=== PATIENT | female | born 1995 | race Caucasian/White ===

== ENCOUNTER 2022-09-19 14:15 | Emergency (ER) | payer BC, SELFPAY ==
[2022-09-19] VITALS (9 sets, daily range): BP systolic 111–141; BP diastolic 64–79; PULSE 70–86; RESP 16; TEMP 36.3–36.8; O2SAT 99–100
--- NOTE | ~2022-09-19 | CT_ITS ---
EXAMINATION: CTA chest PE abdomen pel DATE: 09/19/2022 20:33 INDICATION: cp, sob, epigastric pain, elevated dimer TECHNIQUE: Computed tomography angiography (CTA) of the chest was performed with 100 mL Omnipaque-350 intravenous contrast timed to evaluate the pulmonary arteries, followed by portal venous phase imagi ng of the abdomen and pelvis. Coronal maximum intensity projection 3D-reconstructions were created by the technologist. The dose-length product (DLP) was 777.77 mGy-cm. Automated exposure control and it erative reconstruction technique were employed. COMPARISON: None. FINDINGS: CHEST: Lung parenchyma and airways: Clear. Pleura: Unremarkable. Thoracic inlet, axillae and chest wall: Unremarkable. Thoracic aorta: Normal. Mediastinum: Normal. Heart and pericardium: Normal. Coronary artery calcifications: Absent. Thoracic bones: No acute osseous finding. Thoracic scoliosis. Pulmonary arteries: Study quality: Adequate. No pulmonary emboli detected. ABDOMEN/PELVIS: Liver: Normal. Biliary/Gallbladder: Gallbladder is normal. No bile duct dilation. Pancreas: No mass or duct dilation. Spleen: Normal. Adrenals:No mass. Kidneys: No mass, stone, or hydronephrosis. GI tract: No small or large bowel dilation. Normal appendix. Mesentery/Peritoneum: No ascites, mass, or free air. Retroperitoneum: No mass. Pelvis: Pelvic organs are within normal limits. Soft Tissues: Soft tissues and body wall unremarkable. Abdominopelvic bones: No acute osseous finding. IMPRESSION: No CT evidence of acute pulmonary embolus. No acute process detected in the chest, abdomen, or pelvis . Reviewed, dictated and finalized at location K. K SETTER IMPRESSION: No CT evidence of acute pulmonary embolus. No acute process detected in the [address], abdomen, or pelvis.
[2022-09-19 14:51] LABS: Basophils Absolute Auto 0.1 K/mm3 (0.0-0.1); Basophils Percent Auto 0.6 % (0.2-1.2); Eosinophils Absolute Auto 0.1 K/mm3 (0-0.3); Eosinophils Percent Auto 0.6 % (0-4.4); Hematocrit 44.5 % (37.0-47.0); Hemoglobin 14.7 g/dL (12.0-15.0); Immature Granulocyte Absolute 0.03 K/mm3 (0.00-0.031); Immature Granulocyte Percent A 0.4 % (0-0.5); Lymphocytes Absolute Auto 2.25 K/mm3 (0.9-3.2); Lymphocytes Percent Auto 28.6 % (18.3-44.2); Mean Corpuscular Hemoglobin 30.9 pg (26-34); Mean Corpuscular Volume 93.5 fl (80-100); Mean Platelet Volume 10.5 fl (7.4-10.4); Monocytes Absolute Auto 0.5 K/mm3 (0.1-0.6); Monocytes Percent Auto 5.7 % (2.6-8.5); Neutrophils Absolute Auto 5.1 K/mm3 (1.3-6.7); Neutrophils Percent Auto 64.1 % (45.5-73.1); Platelet Count Result 219 k/mm3 (150-375); Red Blood Count 4.76 M/mm3 (4.2-5.4); Red Cell Distribution Width 12.2 % (11.5-14.5); White Blood Count 7.9 K/mm3 (4.5-10.0)
[2022-09-19 15:00] LABS: Appearance Urine Clear (Clear); Bilirubin Urine 1+ (Negative); Blood Urine 1+ (Negative); Color Urine Yellow (Yellow); Glucose Urine UA Negative (Negative); Ketones Urine Trace mg/dL (Negative); Leukocyte Esterase Ur Negative LEU/UL (Negative); Nitrate Urine Negative (Negative); Protein Urine 1+ mg/dL (Negative); Specific Grav Ur 1.025 (1.001-1.035); Urobilinogen Urine 0.2 mg/dL (<2.0); pH Urine 6.5 (5.0-9.0)
[2022-09-19 15:01] LABS: Alanine Aminotransferase 18 U/L (6-35); Albumin Level 4.6 g/dL (3.5-5.1); Alkaline Phosphatase 59 U/L (38-126); Anion Gap 13 mmol/L (8-16); Aspartate Amino Transferase 24 U/L (14-36); Bilirubin,Total 0.5 mg/dL (0.2-1.3); Blood Urea Nitrogen 13 mg/dL (7-17); Calcium 9.2 mg/dL (8.4-10.2); Carbon Dioxide 25 mmol/L (22-30); Chloride 103 mmol/L (98-107); Estimated CRCL calculation 82 ml/min; Estimated Glomerular Filt Rate > 60; Glucose 104 mg/dL (65-110); Lipase 43 U/L (23-300); Potassium 3.7 mmol/L (3.4-5.0); Sodium 141 mmol/L (137-145)
[2022-09-19 15:03] LABS: Bacteria Urine Trace /hpf; Mucus Urine Few /lpf; Squamous Epithelial Cell Urine Few /hpf (Few); WBC Urine 0-3 /hpf
[2022-09-19 15:10] LABS: Add Urine Microscopic? YES
[2022-09-19] MEDS: FAMOTIDINE 20 MG/2 ML VIAL IV PUSH (18:32)
[2022-09-19] MEDS: SODIUM CHLORIDE 0.9% IV 1,000 ML 999 ML IV CONT (18:32)
--- NOTE | 2022-09-19 18:37 | ECG_ITS ---
Measurements Intervals [place] Rate: 81 P: 25 [place]: 149 QRS: 65 QRSD: 94 T: 42 QT: 386 QTc: 450 Interpretive Statements SINUS RHYTHM BORDERLINE T WAVE ABNORMALITY- ANTERIOR LEADS BASELINE WANDER- II, III, AVF BORDERLINE ECG NO PREVIOUS ECG AVAILABLE FOR COMPARISON Electronically Signed On 09-20-2022 6:37:06 [employer] by Mor Álvarez D.O.
--- NOTE | 2022-09-19 18:38 | ED.ABDPAIN ---
HPI - Abdominal Pain General Chief Complaint: Abdominal Pain <DONELL Modi Last Filed: 09/19/22 21:16> Stated Complaint: epigastric pain <DONELL Modi Last Filed: 09/19/22 21:16> Time Seen by Provider: 09/19/22 18:09 <DONELL Modi Last Filed: 09/19/22 21:16> Source: patient <DONELL Modi Last Filed: 09/19/22 21:16> Mode of arrival: ambulatory <DONELL Modi Last Filed: 09/19/22 21:16> Limitations: no limitations <DONELL Modi Last Filed: 09/19/22 21:16> History of Present Illness HPI narrative: This is a 27-year-old female that presents to the emergency department for epigastric pain ongoing over the last 3 days. Reports the pain is a pressure. It is constant and worse with eating. Associated with nausea, diarrhea, and shortness of breath. She has been taking her omeprazole with little relief. Denies fever, cough, vomiting, or dysuria. <DONELL Modi Last Filed: 09/19/22 21:16> Related Data Home Medications: Home Medications Medication Instructions Recorded Confirmed omeprazole 40 mg capsule,delayed 40 mg PO BID 09/25/22 09/25/22 release <DONELL Modi Last Filed: 09/19/22 21:16> Allergies/Adverse Reactions: Allergies Allergy/AdvReac Type Severity Reaction Status Date / Time No Known Allergies Allergy Verified 09/25/22 13:01 <DONELL Modi Last Filed: 09/19/22 21:16> Review of Systems Review of Systems: CONSTITUTIONAL: Denies fever CARDIOVASCULAR: Reports chest pain. Denies edema. RESPIRATORY: Reports dyspnea. Denies cough GASTROINTESTINAL: Reports abdominal pain, nausea, and diarrhea. GENITOURINARY: Denies dysuria PSYCHIATRIC: Reports anxiety and depression. <DONELL Modi Last Filed: 09/19/22 21:16> All systems reviewed & are unremarkable except as noted in HPI and below <Summer Bush PA-C - Last Filed: 09/19/22 21:16> [facility] Past Medical History Medical History: Medical History (Updated 09/25/22 @ 13:41 by Chelle Brady APRN) Atypical chest pain Globus sensation History of anxiety History of depression History of gastroesophageal reflux (GERD) Nausea Overweight (BMI 25.0-29.9) Upper abdominal pain <Summer Bush PA-C - Last Filed: 09/19/22 21:16> Social History Social History: Social History Smoking status: Former smoker Alcohol intake: current Substance use: current Substance use type: marijuana <Summer Bush PA-C - Last Filed: 09/19/22 21:16> Exam Narrative: GENERAL: Well-appearing, well-nourished, and in no acute distress. HEAD: Normocephalic, atraumatic. EYES: EOMI. CHEST: Clear to auscultation. No respiratory distress. No wheezes rales or rhonchi HEART: Regular rate and rhythm. No murmur heard. Normal peripheral pulses. ABDOMEN: Soft, nondistended, normal active bowel sounds. Tender to palpation in the epigastrium, without guarding EXTREMITIES: Normal range of motion. No edema. SKIN: Warm, dry, no rash. NEURO: No focal deficits. Alert and oriented x3. PSYCH: Normal mood and affect <Summer Bush PA-C - Last Filed: 09/19/22 21:16> Course VIDEO CLERK/PA Physician Supervision For this patient encounter, I reviewed the VIDEO CLERK or PA documentation, treatment plan, and medical decision making. I was available for consultation as needed. <Blaire Quarles MD - Last Filed: 10/04/22 12:59> Vital Signs Vital signs: Vital Signs Temperature 97.3 F L 09/19/22 14:36 Pulse Rate 85 09/19/22 14:36 Respiratory Rate 16 09/19/22 14:36 Blood Pressure 141/79 H 09/19/22 14:36 Pulse Oximetry 100 09/19/22 14:36 Temperature 98.3 F 09/19/22 21:00 Pulse Rate 72 09/19/22 21:00 Respiratory Rate 16 09/19/22 21:00 Blood Pressure 116/74 09/19/22 21:00 Pulse Oximetry 100 09/19/22 21:00 <Summer Bush,
[2022-09-19 19:47] LABS: Troponin I < 0.012 ng/mL (0.000-0.034)
[2022-09-19 19:54] LABS: D Dimer 0.53 ug/mL (<0.48)
== END 2022-09-19 21:29 | disposition home or self-care (01) ==
PROVIDERS: Emergency Medicine; Physician Assistant; Emergency Provider Emergency Medicine; PCP Physician Assistant
DX: R10.13 Epigastric pain (principal); K21.9 Gastro-esophageal reflux disease without esophagitis; Z87.891 Personal history of nicotine dependence; R94.31 Abnormal electrocardiogram [ECG] [EKG]
CPT/HCPCS: 36415; 71275; 74177; 80053; 81001; 81025; 83690; 84484; 85025; 85380; 93005; 96361; 96374; 96375; 99284; J0131; J7030; Q9967

== ENCOUNTER 2022-10-17 07:54 | Outpatient (CLI) | payer BC, SELFPAY ==
--- NOTE | ~2022-10-17 | NM_ITS ---
EXAMINATION: NM hepatobiliary wo pharm DATE: 10/17/2022 10:27 INDICATION: Atypical chest pain and upper abdominal pain. COMPARISON: None. TECHNIQUE: 20.8 mCi Tc-99m mebrofenin (Choletec) was administered intravenously. Scintigraphic image s of the abdomen were obtained for one hour. At the 1 hour time point, the patient drank 8 oz Ensure, and imaging was continued for 60 minutes. Gallbladder ejection fraction was calculated by the techno logist. FINDINGS: There is normal clearance of radiotracer from the blood pool. There is homogeneous tracer u ptake by the liver. Activity progresses to the bowel and gallbladder. The gallbladder ejection fract ion (GBEF) is 48%. Note that with this technique, normal GBEF >= 33%. IMPRESSION: 1. Normal hepatobiliary scan. Reviewed, dictated and finalized at location A. SURVEYOR
== END 2022-10-17 07:55 | disposition home or self-care (01) ==
LOC: ANHIMG 07:56
PROVIDERS: PCP Physician Assistant; Visit Provider Nurse Practitioner
DX: R07.89 Other chest pain (principal); R10.10 Upper abdominal pain, unspecified; R11.0 Nausea
CPT/HCPCS: 78226; A9537

== ENCOUNTER 2022-10-25 09:11 | Outpatient (CLI) | payer BC, SELFPAY ==
[2022-11-23 13:01] LABS: Gliadin AB, IgG <1.0 U/mL (<15.0); TTG IGA AB <1.0 U/mL (<15.0)
== END 2022-10-25 09:12 | disposition home or self-care (01) ==
LOC: ANHLAB 09:13
PROVIDERS: PCP Physician Assistant; Visit Provider Nurse Practitioner
DX: R07.89 Other chest pain (principal); R10.10 Upper abdominal pain, unspecified; R11.0 Nausea
CPT/HCPCS: 36415; 83516; 84443; 86255

== ENCOUNTER 2022-11-08 09:05 | Outpatient (CLI) | payer BC, SELFPAY ==
--- NOTE | ~2022-11-08 | NM_ITS ---
EXAM: NM gastric emptying study DATE: 11/08/2022 14:11 INDICATION: GERD. Upper abdominal pain and nausea TECHNIQUE: A gastric emptying study was performed using the methodology of Barney TORIBIO, et al. J Nucl Med 2007; 48:568-572. The patient was given a meal consisting of 2 scrambled eggs labeled with 0.981 mCi Tc-99m sulfur colloid, 2 slices of toast, two packages of jam, and approximately 120 mL of water . Simultaneous anterior and posterior 1-min images of the abdomen were obtained with the patient supi ne at multiple time points over a total period of 4 hours. The geometric mean of anterior and posteri or views was determined, and the percentage retention was calculated for each time point. COMPARISON: None. FINDINGS: Gastric retention of the radiotracer-labeled meal was 54%, 35%, and 7% at the 1-hour, 2-hour, and 4-h our time points, respectively. With this technique, apparent rapid gastric emptying is suggested by < 30% gastric retention at 1 hour. Delayed gastric emptying is defined by gastric retention of >90% at 1 hour, >60% retention at 2 hours, or >10% retention at 4 hours. IMPRESSION: 1. Normal gastric emptying. Reviewed, dictated and finalized at location A. GER UTILIZATION REVIEW IMPRESSION: 1. Normal gastric emptying.
== END 2022-11-08 09:06 | disposition home or self-care (01) ==
PROVIDERS: PCP Physician Assistant; Visit Provider Nurse Practitioner
DX: R10.10 Upper abdominal pain, unspecified (principal); R07.89 Other chest pain; K21.00 Gastro-esophageal reflux disease with esophagitis, without bleeding; R11.0 Nausea
CPT/HCPCS: 78264; A9541

== ENCOUNTER 2024-04-10 16:09 | Outpatient (CLI) | payer BC, SELFPAY ==
--- NOTE | ~2024-04-10 | XR_ITS ---
EXAM: XR thoracic spine 2V DATE: 04/10/2024 16:29 HISTORY: LOW BACK AND MID BACK PAIN . COMPARISON: None available. FINDINGS: Moderate scoliosis. Decreased bone mineral density. Vertebral body alignment intact. Verteb ral body heights preserved. No disc space narrowing. No traumatic malalignment or fracture. Visualize d lung parenchyma is clear. IMPRESSION: Moderate thoracic scoliosis. Osteopenia to a degree greater than expected for age, consid er bone density scanning for further evaluation. Reviewed, dictated and finalized at location K. IMPRESSION: Moderate thoracic scoliosis. Osteopenia to a degree greater than ex pected for age, consider bone density scanning for further evaluation.
--- NOTE | ~2024-04-10 | XR_ITS ---
EXAM: XR lumbar spine min 4V DATE: 04/10/2024 16:29 HISTORY: LOW BACK AND MID BACK PAIN . COMPARISON: CT abdomen pelvis 09/19/2022. FINDINGS: Mild scoliosis. Diffusely decreased bone mineral density. 5 nonrib-bearing lumbar-type vert ebral bodies. No pars defect. Normal vertebral body alignment. Exaggerated lordosis. Vertebral body h eights preserved. Moderate disc space narrowing at L5-S1. Mild facet narrowing and sclerosis at L5-S1 . Unfused posterior arch at S1. No fracture or dislocation. IMPRESSION: Mild scoliosis. Multilevel degenerative disc disease, mild at L4-5 and moderate at L5-S1. Mild facet arthropathy at L5-S1. Osteopenia to a degree greater than expected for age. Consider bone density evaluation. Reviewed, dictated and finalized at location K. IMPRESSION: Mild scoliosis. Multilevel degenerative disc disease, mild at L4-5 and moderate at L5-S1. Mild facet arthropathy at L5-S1. Osteopenia to a degree greater than expected for age. Consider bone density janette luation.
== END 2024-04-10 16:10 ==
PROVIDERS: PCP Chiropractor; Visit Provider Chiropractor
DX: M41.84 Other forms of scoliosis, thoracic region (principal); M41.86 Other forms of scoliosis, lumbar region; M51.36 Other intervertebral disc degeneration, lumbar region; M51.37 Other intervertebral disc degeneration, lumbosacral region; M47.897 Other spondylosis, lumbosacral region; M81.0 Age-related osteoporosis without current pathological fracture
CPT/HCPCS: 72070; 72110

== ENCOUNTER 2024-10-16 14:04 | Emergency (ER) | payer BC, SELFPAY ==
--- NOTE | ~2024-10-16 | CT_ITS ---
CT abdomen pelvis w con Ordering provider: Florin Shaw MD History: 29 years Female with . RLQ abdominal pain . Comparison: None. Technique: CT abdomen and pelvis with IV and without oral contrast. Automated exposure control and it erative reconstruction technique were employed. The dose-length product was 414.11 mGy-cm. 100 mL Omnipaque 350 was given IV. Findings: VISUALIZED LOWER CHEST: Normal. UPPER ABDOMINAL ORGANS: Liver: Normal. Gallbladder: Normal. Spleen: Normal. Stomach/duodenum: Normal. Pancreas: Normal. Adrenals: Normal. Kidneys: Normal. PELVIC ORGANS: The bladder is normal. . Uterus: Normal. BOWEL AND MESENTERY: Colon: No evidence of diverticulitis.. Normal appendix. Small Bowel: Normal. No obstruction. Peritoneum/mesentery: No free air or free fluid. No mesenteric lymphadenopathy. RETROPERITONEUM: Normal aorta. No retroperitoneal lymphadenopathy. MUSCULOSKELETAL: Superficial soft tissues: The superficial soft tissues are normal. Bones: Normal spine. IMPRESSION: 1. No evidence of appendicitis, diverticulitis or intestinal obstruction. Reviewed, dictated and finalized at location A. [facility]
--- NOTE | ~2024-10-16 | US_ITS ---
EXAMINATION: US pelvic complete w TV DATE: 10/16/2024 16:08 INDICATION: Low back pain. Low abdominal pain. TECHNIQUE: Multiple transabdominal and transvaginal sonographic images of the pelvis were obtained. COMPARISON: CT abdomen and pelvis 09/19/2022 FINDINGS: TRANSABDOMINAL ULTRASOUND: The uterus measures 6.4 x 2.9 x 4.3 cm. There is no free fluid in the pelvis. TRANSVAGINAL ULTRASOUND: The endometrial complex measures 5 mm in thickness. The right ovary measures 2.4 x 1.2 x 1.3 cm. The left ovary measures 2.3 x 1.2 x 1.0 cm. There is normal vascular flow in the ovaries. IMPRESSION: 1. Normal pelvis. Reviewed, dictated and finalized at location A. E CALLS NURSE IMPRESSION: 1. Normal pelvis.
[2024-10-16 14:20] VITALS: BP 124/75; PULSE 82; RESP 18; TEMP 36.6; O2SAT 100
--- NOTE | 2024-10-16 15:05 | ED.ABDPAIN ---
HPI - Abdominal Pain General Chief Complaint: Abdominal Pain <DONELL Thao Last Filed: 10/16/24 15:19> Stated Complaint: 5-6wks post has back pain and cramping <DONELL Thao Last Filed: 10/16/24 15:19> Time Seen by Provider: 10/16/24 15:05 <DONELL Thao Last Filed: 10/16/24 15:19> Focused HPI: Patient is a 29 y/o female who presents to the ED with c/o lower abd/back cramping. Patient reports she is 5-6 weeks post surgical . She was 17 weeks gestation at that time and underwent surgical portion through [facility]. . Patient reports over the last few days, she has been having pain and cramping in her lower back. She has also been having some cramping in her lower abdomen, as well as a warming clammy sensation. Denies known fevers. Has been taking ibuprofen/tylenol for pain. She currently is using NuvaRing for control in states she is due to take this out to have a cycle. She has otherwise not had a normal cycle since the . Sees Dr. Chapa and was referred here for further evaluation. GENERAL: Well-appearing, well-nourished, and in no acute distress. HEAD: Normocephalic, atraumatic. CHEST: Clear to auscultation. ?No respiratory distress. HEART: Regular rate and rhythm.? ABD: Mild TTP in lower back. Normoactive BS NEURO: ?Alert and oriented x3. Patient screened in triage and initial orders placed.? ?Additional care and disposition to be based upon?diagnostic testing and treatment. <DONELL Thao Last Filed: 10/16/24 15:19> Source: patient <DONELL Thao Filed: 10/16/24 15:19> Mode of arrival: ambulatory <DONELL Thao Last Filed: 10/16/24 15:19> Limitations: no limitations <DONELL Thao Last Filed: 10/16/24 15:19> History of Present Illness HPI narrative: I agree with the HPI as documented in the medical screening exam <Florin Shaw MD - Last Filed: 10/17/24 00:51> Related Data Home Medications: Home Medications Medication Instructions Recorded Confirmed omeprazole 40 mg capsule,delayed 40 mg PO BID 09/25/22 03/15/23 release <Kendal Duenas PA-C - Last Filed: 10/16/24 15:19> Allergies/Adverse Reactions: Allergies Allergy/AdvReac Type Severity Reaction Status Date / Time No Known Allergies Allergy Verified 10/16/24 14:23 <Kendal Duenas PA-C - Last Filed: 10/16/24 15:19> Review of Systems Review of Systems: All systems reviewed & are unremarkable except as noted in HPI and below <Florin Shaw MD - Last Filed: 10/17/24 00:51> PMFSH Past Medical History Medical History: Medical History Atypical chest pain GERD with esophagitis Globus sensation Hiatal hernia History of anxiety History of depression History of gastroesophageal reflux (GERD) Nausea Overweight (BMI 25.0-29.9) Upper abdominal pain <Kendal Duenas PA-C - Last Filed: 10/16/24 15:19> Surgical History Surgical History: Surgical History H/O wisdom tooth extraction <Kendal Duenas PA-C - Last Filed: 10/16/24 15:19> Family History Family History: Family History Father Hypertension <Kendal Duenas PA-C - Last Filed: 10/16/24 15:19> Social History Social History: Social History Smoking status: Former smoker Tobacco type: cigarettes Alcohol intake: current Substance use: current Substance use type: marijuana Living arrangements: alone Occupation/Education: occupation Additional occupation/education comments: Insurance Auditor <Kendal Duenas PA-C - Last Filed: 10/16/24 15:19> Exam Narrative: GENERAL: Well-developed, well-nourished, and in no acute distress. HEAD: Normocephalic, atraumatic. EYES: PERRLA and EOMI. CHEST: Clear to auscultation. No respiratory distress. No wheezes rales or rhonchi HEART: Regular rate and rhythm. No murmur heard. Normal peripheral pulses. ABDOMEN: Soft, right lower quadrant tenderness to palpation without rebound or guarding, Rovsing sign positive, nondistended, normal active bowel sounds. mild right CVA tenderness to palpation, no left CVA tenderness EXTREMITIES: Normal range of motion. No edema. SKIN: Warm, dry, no rash. NEURO: Alert and oriented x3. No focal deficit. Moving all 4 limbs spontaneously PSYCH: Normal mood and affect. <Florin Shaw MD - Last Filed: 10/17/24 00:51> Course Course Emergency Course: 22:40 - CBC unremarkable. Chemistries within normal limits. test negative. pelvic ultrasound demonstrates a normal endometrial stripe with normal ovaries bilaterally. Urinalysis demonstrates microscopic hematuria with RBCs of 3-5. CT abdomen pelvis negative for acute intra-abdominal process. It is possible the patient may have passed a stone. Will discharge with NSAIDs and recommendation for primary care follow-up. I discussed the findings and recommendations with The patient. Discussed return and emergency precautions including signs/symptoms of acute abdomen and intractable vomiting. The patient voiced understanding and agreement with the plan. All questions answered to her satisfaction. <Florin Shaw MD - Last Filed: 10/17/24 00:51> Vital Signs Vital signs: Vital Signs Temperature 97.9 F 10/16/24 14:20 Pulse Rate 82 10/16/24 14:20 Respiratory Rate 18 10/16/24 14:20 Blood Pressure 124/75 10/16/24 14:20 Pulse Oximetry 100 10/16/24 14:20 Oxygen Delivery Room Air 10/16/24 14:20 Temperature 97.6 F 10/16/24 20:12 Pulse Rate 78 10/16/24 23:30 Respiratory Rate 16 10/16/24 23:30 Blood Pressure 128/80 10/16/24 23:30 Pulse Oximetry 100 10/16/24 23:30 Oxygen Delivery Room Air 10/16/24 14:20 <Kendal Duenas PA-C - Last Filed: 10/16/24 15:19> Vital Signs Temperature 97.9 F 10/16/24 14:20 Pulse Rate 82 10/16/24 14:20 Respiratory Rate 18 10/16/24 14:20 Blood Pressure 124/75 10/16/24 14:20 Pulse Oximetry 100 10/16/24 14:20 Oxygen Delivery Room Air 10/16/24 14:20 Temperature 97.6 F 10/16/24 20:12 Pulse Rate 78 10/16/24 23:30 Respiratory Rate 16 10/16/24 23:30 Blood Pressure 128/80 10/16/24 23:30 Pulse Oximetry 100 10/16/24 23:30 Oxygen Delivery Room Air 10/16/24 14:20 <Florin Shaw MD - Last Filed: 10/17/24 00:51> MDM - Abdominal Pain MDM Narrative Medical decision making narrative: MSE by LATOYA in triage. <Kendal Duenas PA-C - Last Filed: 10/16/24 15:19> MSE by LATOYA in triage. plan: Labs, imaging, test, ultrasound, pain control, reassess <Florin Shaw MD - Last Filed: 10/17/24 00:51> Differential Diagnosis Differential diagnosis: Likely acute appendicitis, calculus of kidney, diverticulitis, gastroenteritis, pancreatitis, small bowel obstruction and other ( ovarian torsion, , ectopic , UTI, pyelonephritis, other) <Florin Shaw MD - Last Filed: 10/17/24 00:51> Lab Data Result diagrams: 10/16/24 16:09 10/16/24 16:09 <Kendal Duenas PA-C - Last Filed: 10/16/24 15:19> Labs: Lab Results 10/16/24 10/16/24 10/16/24 Range/Units 16:09 16:14 16:21 WBC 5.2 (4.5-10.0) K/mm3 RBC 4.54 (4.2-5.4) M/mm3 Hgb 14.3 (12.0-15.0) g/dL Hct 43.3 (37.0-47.0) % MCV 95.4 (80-100) fl MCH 31.5 (26-34) pg MCHC 33.0 (32-36) g/dl RDW 12.2 (11.5-14.5) % Plt Count 199 (150-375) k/mm3 MPV 11.0 H (7.4-10.4) fl Immature Gran % (Auto) 0.2 (0-0.5) % Neut % (Auto) 40.7 L (45.5-73.1) % Lymph % (Auto) 49.3 H (18.3-44.2) % Boyle % (Auto) 8.4 (2.6-8.5) % Eos % (Auto) 0.8 (0-4.4) % Baso % (Auto) 0.6 (0.2-1.2) % Lymph # (Auto) 2.57 (0.9-3.2) K/mm3 Boyle # (Auto) 0.4 (0.1-0.6) K/mm3 Eos # (Auto) 0.0 (0-0.3) K/mm3 Baso # (Auto) 0.0 (0.0-0.1) K/mm3 Abs Immat Gran (auto) 0.01 (0.00-0.031) K/mm3 Absolute Neuts (auto) 2.1 (1.3-6.7) K/mm3 Absolute Nucleated RBC 0.000 (0.0-0.012) K/mm3 Nucleated RBC % 0.0 (0.0-0.2) % Sodium 140 (137-145) mmol/L Potassium 4.0 (3.4-5.0) mmol/L Chloride 110 H (98-107) mmol/L Carbon Dioxide 25 (22-30) mmol/L Anion Gap 5 (4-12) mmol/L BUN 15 (7-17) mg/dL Creatinine 0.80 (0.7-1.0) mg/dL Estim Creat Clear Calc 89 ml/min Estimated GFR > 60 (59 - ) Glucose 83 (65-110) mg/dL Calcium 9.1 (8.4-10.2) mg/dL Total Bilirubin 0.4 (0.2-1.3) mg/dL AST 21 (14-36) U/L ALT 14 (6-35) U/L Alkaline Phosphatase 46 (38-126) U/L Total Protein 7.0 (6.3-8.2) g/dL Albumin 4.4 (3.5-5.1) g/dL Beta HCG, Quant < 2.39 mIU/ML Urine Color Yellow (Yellow) Urine Appearance Clear (Clear) Urine pH 6.0 (5.0-9.0) Ur Specific [place] 1.034 (1.001-1.035) Urine Protein Trace (Negative) mg/dL Urine Glucose (UA) Negative (Negative) mg/dL Urine Ketones Trace H (Negative) mg/dL Ur Blood (Man) Non-hemolyzed trace H (Negative) Urine Nitrate Negative (Negative) Urine Bilirubin Negative (Negative) Urine Urobilinogen 1.0 (<2.0) mg/dL Leukocyte Esterase Rfl Negative (Negative) [place]/UL Urine RBC 3-5 H (0-2) /hpf Urine WBC 0-5 (0-3) /hpf Ur Squamous Epith Cells Occasional (Few) /hpf Urine Bacteria None seen /hpf Urine Casts 0-2 <Kendal Duenas PA-C - Last Filed: 10/16/24 15:19> Lab Results 10/16/24 10/16/24 10/16/24 Range/Units 16:09 16:14 16:21 WBC 5.2 (4.5-10.0) K/mm3 RBC 4.54 (4.2-5.4) M/mm3 Hgb 14.3 (12.0-15.0) g/dL Hct 43.3 (37.0-47.0) % MCV 95.4 (80-100) fl MCH 31.5 (26-34) pg MCHC 33.0 (32-36) g/dl RDW 12.2 (11.5-14.5) % Plt Count 199 (150-375) k/mm3 MPV 11.0 H (7.4-10.4) fl Immature Gran % (Auto) 0.2 (0-0.5) % Neut % (Auto) 40.7 L (45.5-73.1) % Lymph % (Auto) 49.3 H (18.3-44.2) % Boyle % (Auto) 8.4 (2.6-8.5) % Eos % (Auto) 0.8 (0-4.4) % Baso % (Auto) 0.6 (0.2-1.2) % Lymph # (Auto) 2.57 (0.9-3.2) K/mm3 [place] # (Auto) 0.4 (0.1-0.6) K/mm3 Eos # (Auto) 0.0 (0-0.3) K/mm3 Baso # (Auto) 0.0 (0.0-0.1) K/mm3 Abs Immat Gran (auto) 0.01 (0.00-0.031) K/mm3 Absolute Neuts (auto) 2.1 (1.3-6.7) K/mm3 Absolute Nucleated RBC 0.000 (0.0-0.012) K/mm3 Nucleated RBC % 0.0 (0.0-0.2) % Sodium 140 (137-145) mmol/L Potassium 4.0 (3.4-5.0) mmol/L Chloride 110 H (98-107) mmol/L Carbon Dioxide 25 (22-30) mmol/L Anion Gap 5 (4-12) mmol/L BUN 15 (7-17) mg/dL Creatinine 0.80 (0.7-1.0) mg/dL Estim Creat Clear Calc 89 ml/min Estimated GFR > 60 (59 - ) Glucose 83 (65-110) mg/dL Calcium 9.1 (8.4-10.2) mg/dL Total Bilirubin 0.4 (0.2-1.3) mg/dL AST 21 (14-36) U/L ALT 14 (6-35) U/L Alkaline Phosphatase 46 (38-126) U/L Total Protein 7.0 (6.3-8.2) g/dL Albumin 4.4 (3.5-5.1) g/dL Beta HCG, Quant < 2.39 mIU/ML Urine Color Yellow (Yellow) Urine Appearance Clear (Clear) Urine pH 6.0 (5.0-9.0) Ur Specific [place] 1.034 (1.001-1.035) Urine Protein Trace (Negative) mg/dL Urine Glucose (UA) Negative (Negative) mg/dL Urine Ketones Trace H (Negative) mg/dL Ur Blood (Man) Non-hemolyzed trace H (Negative) Urine Nitrate Negative (Negative) Urine Bilirubin Negative (Negative) Urine Urobilinogen 1.0 (<2.0) mg/dL Leukocyte Esterase Rfl Negative (Negative) [place]/UL Urine RBC 3-5 H (0-2) /hpf Urine WBC 0-5 (0-3) /hpf Ur Squamous Epith Cells Occasional (Few) /hpf Urine Bacteria None seen /hpf Urine Casts 0-2 <Florin Shaw MD - Last Filed: 10/17/24 00:51> Imaging Data Radiologist's impression: ITS Impressions Pelvic/Transvag US 10/16/24 16:08 IMPRESSION: 1. Normal pelvis. Abdomen/Pelvis CT 10/16/24 21:56 IMPRESSION: 1. No evidence of appendicitis, diverticulitis or intestinal obstruction. <Kendal Duenas PA-C - Last Filed: 10/16/24 15:19> ITS Impressions Pelvic/Transvag US 10/16/24 16:08 IMPRESSION: 1. Normal pelvis. Abdomen/Pelvis CT 10/16/24 21:56 IMPRESSION: 1. No evidence of appendicitis, diverticulitis or intestinal obstruction. <Florin Shaw MD - Last Filed: 10/17/24 00:51> Discharge Plan Discharge Clinical Impression: Abdominal pain, RLQ Hematuria Qualifiers: Hematuria type: other microscopic Qualified Code(s): R31.29 - Other microscopic hematuria <Kendal Duenas PA-C - Last Filed: 10/16/24 15:19> Patient Disposition: Home, Self-Care <Kendal Duenas PA-C - Last Filed: 10/16/24 15:19> Condition: Stable <Kendal Duenas PA-C - Last Filed: 10/16/24 15:19> Instructions: Antibiotic Form <Kendal Duenas PA-C - Last Filed: 10/16/24 15:19> Additional Instructions: You were seen in the emergency department. an ultrasound was not concerning for injury to the ovaries or obvious abnormality of the uterus. Your labs are not concerning for liver or kidney injury. test was negative. Urinalysis showed 3-5 red blood cells but no other changes concerning for infection. A CT scan of the abdomen was not concerning for infection or mass. I suspect you may have passed a kidney stone. I recommend following up with your primary care doctor and Tylenol/ ibuprofen/indomethacin for pain. If you develop fevers with severe abdominal pain, persistent vomiting, bleeding, loss of consciousness, weakness/numbness, or if you have other emergent concerns for life, limb, or eyesight, return to the emergency department. <Kendal Duenas PA-C - Last Filed: 10/16/24 15:19> Patient Language: Palauan <Kendal Duenas PA-C - Last Filed: 10/16/24 15:19> Prescriptions: New indomethacin 25 mg capsule 25 mg PO BID Qty: 14 0RF Rx Instructions: administer with food or milk No Action omeprazole 40 mg capsule,delayed release(DR/EC) 40 mg PO BID sucralfate [Carafate] 1 gram tablet 1 g PO ACHS Qty: 120 0RF rabeprazole [AcipHex] 20 mg tablet,delayed release (DR/EC) 20 mg PO BID Qty: 60 3RF baclofen 5 mg tablet 5 mg PO BID Qty: 60 2RF esomeprazole magnesium [Nexium] 40 mg capsule,delayed release(DR/EC) 40 mg PO DAILY Qty: 30 6RF amitriptyline 25 mg tablet 50 mg PO QHS 30 Days Qty: 60 3RF <Kendal Duenas PA-C - Last Filed: 10/16/24 15:19> Follow-up/Referrals: Bob,Kai Merritt [place] [Primary Care Provider] - 1 Week <Kendal Duenas PA-C - Last Filed: 10/16/24 15:19> Stand Alone Forms: Work/School Release IP <Kendal Duenas PA-C - Last Filed: 10/16/24 15:19> Time of Disposition: 22:41 <Kendal Duenas PA-C - Last Filed: 10/16/24 15:19> 22:41 <Florin Shaw MD - Last Filed: 10/17/24 00:51>
[2024-10-16] MEDS: ACETAMINOPHEN 500 MG TABLET 1000 MG PO (16:03)
[2024-10-16 16:35] LABS: Basophils Percent Auto 0.6 % (0.2-1.2); Eosinophils Percent Auto 0.8 % (0-4.4); Hematocrit 43.3 % (37.0-47.0); Hemoglobin 14.3 g/dL (12.0-15.0); Immature Granulocyte Absolute 0.01 K/mm3 (0.00-0.031); Immature Granulocyte Percent A 0.2 % (0-0.5); Lymphocytes Absolute Auto 2.57 K/mm3 (0.9-3.2); Lymphocytes Percent Auto 49.3 % (18.3-44.2); Mean Corpuscular Hemoglobin 31.5 pg (26-34); Mean Corpuscular Volume 95.4 fl (80-100); Monocytes Absolute Auto 0.4 K/mm3 (0.1-0.6); Monocytes Percent Auto 8.4 % (2.6-8.5); Neutrophils Absolute Auto 2.1 K/mm3 (1.3-6.7); Neutrophils Percent Auto 40.7 % (45.5-73.1); Platelet Count Result 199 k/mm3 (150-375); Red Blood Count 4.54 M/mm3 (4.2-5.4); Red Cell Distribution Width 12.2 % (11.5-14.5); White Blood Count 5.2 K/mm3 (4.5-10.0)
[2024-10-16 16:39] LABS: Add Urine Microscopic? YES; Appearance Urine Clear (Clear); Bacteria Urine None Seen /hpf; Bilirubin Urine Negative (Negative); Blood Urine Non-Hemolyzed Trace (Negative); Color Urine Yellow (Yellow); Glucose Urine UA Negative (Negative); Ketones Urine Trace mg/dL (Negative); Leukocyte Esterase Ur Negative LEU/UL (Negative); Nitrate Urine Negative (Negative); Non Pathogenic Casts 0-2; Protein Urine Trace mg/dL (Negative); Specific Grav Ur 1.034 (1.001-1.035); Squamous Epithelial Cell Urine Occasional /hpf (Few); WBC Urine 0-5 /hpf (0-3)
[2024-10-16 16:49] LABS: Alanine Aminotransferase 14 U/L (6-35); Albumin Level 4.4 g/dL (3.5-5.1); Alkaline Phosphatase 46 U/L (38-126); Anion Gap 5 mmol/L (4-12); Aspartate Amino Transferase 21 U/L (14-36); Bilirubin,Total 0.4 mg/dL (0.2-1.3); Blood Urea Nitrogen 15 mg/dL (7-17); Calcium 9.1 mg/dL (8.4-10.2); Carbon Dioxide 25 mmol/L (22-30); Chloride 110 mmol/L (98-107); Estimated CRCL calculation 89 ml/min; Estimated Glomerular Filt Rate > 60; Glucose 83 mg/dL (65-110); Sodium 140 mmol/L (137-145)
[2024-10-16 17:14] LABS: Beta HCG Quantitative < 2.39 mIU/ML
[2024-10-16 20:12] VITALS: BP 127/90; PULSE 73; RESP 14; TEMP 36.4; O2SAT 100
[2024-10-16 23:30] VITALS: BP 128/80; PULSE 78; RESP 16; O2SAT 100
== END 2024-10-16 23:31 | disposition home or self-care (01) ==
PROVIDERS: Physician Assistant; Emergency Provider Preventive Medicine Aerospace Medicine; PCP Chiropractor
DX: R10.31 Right lower quadrant pain (principal); R31.29 Other microscopic hematuria; Z98.890 Other specified postprocedural states; E66.3 Overweight; Z68.26 Body mass index [BMI] 26.0-26.9, adult; K21.00 Gastro-esophageal reflux disease with esophagitis, without bleeding; K44.9 Diaphragmatic hernia without obstruction or gangrene; Z87.891 Personal history of nicotine dependence
CPT/HCPCS: 36415; 74177; 76830; 76856; 80053; 81001; 84702; 85025; 99284; A9270; Q9967

== ENCOUNTER 2024-12-03 08:49 | Outpatient (CLI) | payer BC, SELFPAY ==
--- NOTE | ~2024-12-03 | XR_ITS ---
Clinical Indication: Cough PA and lateral views of the chest: Comparison: None Findings: The lungs are clear, without evidence of focal consolidation or pleural effusion. Cardiome diastinal silhouette is within normal limits. Bones and soft tissues are unremarkable. Impression: Normal chest. Reviewed, dictated and finalized at [facility]. [employer] INSPECTOR Impression: Normal chest.
== END 2024-12-03 08:50 | disposition home or self-care (01) ==
LOC: MICIMG 08:51
PROVIDERS: PCP Physician Assistant; Visit Provider Physician Assistant
DX: R05.9 Cough, unspecified (principal)
CPT/HCPCS: 71046